=== PATIENT | female | born 1990 | race Caucasian/White ===

== ENCOUNTER 2024-12-07 15:39 | Emergency (ER) | payer OTHER ==
[2024-12-07 15:57] VITALS: BP 134/87; PULSE 97; RESP 16; TEMP 99; BMI 27.3
[2024-12-07] MEDS ORDERED: IBUPROFEN 400 MG TABLET (FP) PO ONE (16:29)
[2024-12-07] MEDS ORDERED: METHOCARBAMOL 500 MG TABLET ONE (16:30)
[2024-12-07] MEDS ORDERED: ACETAMINOPHEN 500 MG TABLET (FP) ONE (16:30)
[2024-12-07] MEDS: ACETAMINOPHEN 500 MG TABLET (FP) PO ONE (16:32)
[2024-12-07] MEDS: IBUPROFEN 400 MG TABLET (FP) PO ONE (16:32)
[2024-12-07] MEDS: METHOCARBAMOL 500 MG TABLET PO ONE (16:32)
== END 2024-12-07 17:43 | disposition home or self-care (01) ==
LOC: JERFT 15:39
DX: S16.1XXA Strain of muscle, fascia and tendon at neck level, initial encounter (principal); M54.6 Pain in thoracic spine; M54.50 Low back pain, unspecified; V73.9XXA Unspecified occupant of bus injured in collision with car, pick-up truck or van in traffic accident, initial encounter
CPT/HCPCS: 99283-25